=== PATIENT | male | born 1995 | race Hispanic/Latino ===

== ENCOUNTER 2019-05-14 01:16 | Emergency (ER) | payer SELFPAY ==
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
== END 2019-05-14 04:19 | disposition home or self-care (01) ==
LOC: ERS 01:16
DX: S02.19XA Other fracture of base of skull, initial encounter for closed fracture (principal); Y04.8XXA Assault by other bodily force, initial encounter
CPT/HCPCS: 70450; 70486; 72125; 96360